=== PATIENT | male | born 1990 | race Caucasian/White ===

== ENCOUNTER 2016-10-06 12:10 | Emergency (ER) | payer SELFPAY ==
[~2016-10-06] VITALS: Ht 175.3 cm; Wt 75.0 kg
[2016-10-06 12:19] VITALS: BP 147/73
--- NOTE | 2016-10-06 12:27 | PHYS DOC ---
General Chief Complaint: EYE PROBLEMS Stated Complaint: EYE PROBLEM (PT THINKS POISON EDITH) Time Seen by MD: 12:25 Source: patient Exam Limitations: no limitations Problems: History of Present Illness Initial Comments Patient is a 26-year-old male who comes in the ED complaining of possible poison edith in his right eye. 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 It is itchy and spreading up his right leg he denies difficulty breathing and cough hoarseness or dyspnea on exertion. He's come tonight thinking he may have spread poison edith to his right eye. He has a tender small bump at the medial aspect of the right lower eyelid. There is no vesicles or erythema or purulence or evidence of trauma. No visual changes. Timing/Duration: 24 hours Severity: moderate Modifying Factors: improves with other Associated Symptoms: rash, other Allergies: Coded Allergies: Penicillins (Verified Allergy, Unknown, 10/06/16) amoxicillin (Verified Allergy, Unknown, 10/06/16) Past Medical History Medical History: no pertinent history Surgical History: noncontributory Social History Smoker: cigarettes Alcohol: occasionally Drugs: none Review of Systems Constitutional: denies chills, denies fever, denies malaise EENTM: see HPI Respiratory: denies cough, denies shortness of breath Cardiovascular: denies chest pain, denies palpitations Gastrointestinal: denies nausea, denies vomiting Musculoskeletal: denies back pain, denies neck pain Skin: see HPI Psychiatric/Neurological: denies headache, denies numbness, denies paresthesia Physical Exam General Appearance: WD/WN, no apparent distress Eyes: right eye other (small stye at the lower lid of the right eye), left eye normal inspection, bilateral eye PERRL, bilateral eye EOMI Ear, Nose, Throat: hearing grossly normal, normal ENT inspection, normal pharynx Neck: non-tender, supple Respiratory: normal breath sounds, no respiratory distress Cardiovascular: normal peripheral pulses, regular rate, rhythm Back: no CVA tenderness, no vertebral tenderness Extremities: non-tender, normal inspection 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 Patient expressed agreement and understanding of the same. Departure Time of Disposition: 12:25 Disposition: 01 HOME, SELF-CARE Diagnosis: stye right eye, poison edith, tobaccoism Condition: GOOD Patient Instructions: Poison Edith, [id number], Smoking Cessation Additional Instructions: Remain in a cool temperature environment for optimal symptom control. Change linens daily until symptoms resolve. [id number] Pepcid and Benadryl while taking prednisone. Prescriptions: Bacitracin ophthalmic, prednisone Stop smoking seek medical assistance if necessary. Follow-up with your doctor next week for recheck. Return to the ED with new or changing symptoms ANITA WEI DO Oct 06, 2016 12:27
== END 2016-10-06 12:45 | disposition home or self-care (01) ==
LOC: ER 12:10
DX: L23.7 Allergic contact dermatitis due to plants, except food (principal); H00.012 Hordeolum externum right lower eyelid; F17.210 Nicotine dependence, cigarettes, uncomplicated; Z88.0 Allergy status to penicillin; Z88.1 Allergy status to other antibiotic agents
CPT/HCPCS: 99283

== ENCOUNTER 2017-01-07 09:07 | Emergency (ER) | payer SELFPAY ==
[~2017-01-07] VITALS: Ht 175.3 cm; Wt 77.1 kg
[2017-01-07 09:07] VITALS: BP 133/85
--- NOTE | 2017-01-07 09:27 | PHYS DOC ---
General Chief Complaint: DENTAL PROBLEM Stated Complaint: DENTAL PAIN Time Seen by MD: 09:16 Source: patient Exam Limitations: no limitations Problems: History of Present Illness Initial Comments Patient is a 26-year-old male who comes in the ED complaining of dental pain. Patient states he has a history of bad tooth at his left upper molar. For the past several days he's had worsening of his discomfort and swelling in his mouth , today he has left-sided facial swelling. He states the pain is so great it keeps him up at night. Urrn-jpj-aeqwfwm medications are not helping. He denies fever chills sweats or myalgias he denies any bony tenderness. He doesn't have a dentist and has not tried to make an appointment. He smokes cigarettes and drinks alcohol regularly and abuses marijuana. Timing/Duration: gradual, last week Severity: severe Location: dental Prearrival Treatment: over the counter meds Modifying Factors: improves with other Associated Symptoms: facial pain/swelling, tooth pain Allergies: Coded Allergies: Penicillins (Verified Allergy, Unknown, 10/06/16) amoxicillin (Verified Allergy, Unknown, 10/06/16) Past Medical History Medical History: no pertinent history Surgical History: noncontributory Social History Smoker: cigarettes Alcohol: occasionally Drugs: marijuana Constitutional: denies chills, denies diaphoresis, denies fever, denies malaise Ears: denies dizziness, denies pain Nose: denies congestion, denies epistaxis Mouth: see HPI Throat: denies pain, denies swelling, denies neck stiffness, denies painful swallowing Respiratory: denies cough, denies shortness of breath Cardiovascular: denies chest pain, denies palpitations, denies syncope Gastrointestinal: denies abdominal pain, denies diarrhea, denies nausea, denies vomiting Musculoskeletal: denies back pain, denies joint swelling, denies neck pain Neurological: denies headache, denies numbness, denies paresthesia Physical Exam General Appearance: WD/WN, no apparent distress Eyes: bilateral eye normal inspection, bilateral eye PERRL, bilateral eye EOMI Ears: bilateral ear auricle normal Nose: normal inspection Mouth/Throat: other (swelling and tenderness noted at the left upper premolars consistent with dental abscess, he also has left-sided facial swelling. 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 I advised the patient that chronic dental pain is not treated in the emergency department. If he does not see dental treatment further pain medications will be refused for this condition. I advised him to stop abusing substances he expressed agreement and understanding of the treatment plan. I also discussed [facility] dental school and [facility] as possible alternatives for him to seek treatment and those handouts will be dispensed. Departure Time of Disposition: 09:26 Disposition: HOME, SELF-CARE Diagnosis: dental abscess with facial cellulitis Condition: STABLE Patient Instructions: Dental Abscess Additional Instructions: Stop smoking seek medical assistance if necessary. Download [employer] danette for optimal pricing and savings on prescription medications. Listerine gargles 3 times daily after brushing and flossing. As discussed you must follow-up with a dentist for resolution of this condition. Chronic dental issues are not treated in the emergency department. Over the counter ibuprofen for baseline discomfort. Prescription: Clindamycin, [place] 5 mg quantity 15 Take medications with food to avoid GI upset and vomiting. Take posu-wgn-gbzezlw stool softeners and increase fluid intake to avoid opiate associated constipation. As discussed ED staff will provide you information regarding the [facility] dental [facility], [facility]. Use these resources as needed. Follow-up with dentist schedule appointment today. Return to ED with new or changing symptoms. ANITA WEI DO Jan 07, 2017 09:27
[2017-01-07] MEDS ORDERED: CLIN300C8 PO (09:29)
[2017-01-07] MEDS ORDERED: HYDR-971 PO (09:29)
[2017-01-07] MEDS ORDERED: CLINDAMYCIN HCL 150 MG CAPSULE PO ONE (10:00)
[2017-01-07] MEDS ORDERED: ONDANSETRON ODT 4 MG TAB.RAPDIS PO ONE (10:00)
[2017-01-07] MEDS ORDERED: HYDROcodone/APAP 10/325 1 TAB TABLET PO ONE (10:00)
== END 2017-01-07 09:47 | disposition home or self-care (01) ==
LOC: ER 09:07
DX: K04.7 Periapical abscess without sinus (principal); L03.211 Cellulitis of face; F17.210 Nicotine dependence, cigarettes, uncomplicated; F12.10 Cannabis abuse, uncomplicated; Z88.0 Allergy status to penicillin; Z88.1 Allergy status to other antibiotic agents
CPT/HCPCS: 99284; Q0162

== ENCOUNTER 2018-05-23 13:32 | Emergency (ER) | payer MEDICAID ==
[~2018-05-23] VITALS: Ht 175.3 cm; Wt 79.4 kg
[~2018-05-23 13:32] MED LIST: CLIN300C8 PO; HYDR-3165 PO
[2018-05-23 14:05] VITALS: BP 156/96
[2018-05-23] MEDS ORDERED: CLIN300C8 PO (14:05)
--- NOTE | 2018-05-23 14:05 | PHYS DOC ---
Past History Past Medical History: No Pertinent History Past Surgical History: No Surgical History Alcohol Use: Occasionally Drug Use: None Adult General Chief Complaint Chief Complaint: DENTAL PROBLEM HPI HPI 27-year-old male presents with left lower quadrant dental pain. The patient has a known fracture tooth #18. It is been this way for quite some time but the patient has not had an infection. He recently got a new job and is waiting for his insurance to kick and before going to the dentist. Yesterday began to have left-sided facial swelling and increase in his pain. He also noticed that his gums look red. The patient has had a dental infection in the past about one year ago that improved after treatment. Patient denies fever or chills. He has no other concerns or complaints. Review of Systems Review of Systems Constitutional: Denies fever or chills [] Eyes: Denies change in visual acuity, redness, or eye pain [] HENT: Denies nasal congestion or sore throat. Dental pain[] Respiratory: Denies cough or shortness of breath [] Cardiovascular: No additional information not addressed in HPI [] GI: Denies abdominal pain, nausea, vomiting, bloody stools or diarrhea [] : Denies dysuria or hematuria [] Musculoskeletal: Denies back pain or joint pain [] Integument: Denies rash or skin lesions [] Neurologic: Denies headache, focal weakness or sensory changes [] Endocrine: Denies polyuria or polydipsia [] All other systems were reviewed and found to be within normal limits, except as documented in this note. Allergies Allergies Allergies Coded Allergies Type Severity Reaction Last Updated Verified Penicillins Allergy Unknown 10/06/16 Yes amoxicillin Allergy Unknown 10/06/16 Yes Physical Exam Physical Exam Constitutional: Well developed, well nourished, no acute distress, non-toxic appearance. [] HENT: Normocephalic, atraumatic, bilateral external ears normal, oropharynx moist, no oral exudates, nose normal. Fractured tooth #18, no obvious abscess to drain, erythematous surrounding gums.[] Eyes: PERRLA, EOMI, conjunctiva normal, no discharge. [] Neck: Normal range of motion, no tenderness, supple, no stridor. [] Cardiovascular:Heart rate regular rhythm, no murmur [] Lungs & Thorax: Bilateral breath sounds clear to auscultation [] Abdomen: Bowel sounds normal, soft, no tenderness, no masses, no pulsatile masses. [] Skin: Warm, dry, no erythema, no rash. [] Back: No tenderness, no CVA tenderness. [] Extremities: No tenderness, no cyanosis, no clubbing, ROM intact, no edema. [] Neurologic: Alert and oriented X 3, normal motor function, normal sensory function, no focal deficits noted. [] Psychologic: Affect normal, judgement normal, mood normal. [] EKG EKG [] Radiology/Procedures Radiology/Procedures [] Course & Med Decision Making Course & Med Decision Making Pertinent Labs and Imaging studies reviewed. (See chart for details) Patient doesn't appear to have an infected tooth. I will treat him with clindamycin due to his amoxicillin allergy. He is stable for discharge at this time. [] Dragon Disclaimer Dragon Disclaimer This electronic medical record was generated, in whole or in part, using a voice recognition dictation system. Departure Departure: Impression: Primary Impression: Infected tooth Disposition: HOME, SELF-CARE Condition: STABLE Referrals: PCP,LINSEY (PCP) Patient Instructions: Abscessed Tooth, Mqfz-[id number] Scripts Clindamycin Hcl (CLINDAMYCIN HCL) 300 Mg Capsule 1 CAP PO TID for dental infection, #21 CAP Prov: HERB WEI DO 05/23/18 HERB WEI DO May 23, 2018 14:05
== END 2018-05-23 14:08 | disposition home or self-care (01) ==
LOC: ER 13:32
DX: K04.7 Periapical abscess without sinus (principal); Z88.1 Allergy status to other antibiotic agents; Z88.0 Allergy status to penicillin
CPT/HCPCS: 99283